=== PATIENT | female | born 1995 | race Caucasian/White ===

== ENCOUNTER 2017-11-25 16:02 | Emergency (ER) | payer OTHER ==
--- NOTE | 2017-11-25 16:06 | PDOC ---
Rapid Medical Evaluation Time Seen by Provider: 11/25/17 16:03 Medical Evaluation: 11/25/17 16:04 I have performed a brief in-person evaluation of this patient. The patient presents with a chief complaint of: LMP 10/03/17, 8wks preg with vaginal spotting since today Pertinent physical exam findings:none I have ordered the following:TV sono, type and screen The patient will proceed to the ED for further evaluation. Discharge Disposition - Diagnosis Threatened - Referrals - Patient Instructions - Post Discharge Activity
[2017-11-25 16:08] VITALS: BP 130/77; PULSE 79; TEMP 99; BMI 23.0
--- NOTE | 2017-11-25 17:04 | PDOC ---
History of Present Illness - General Chief Complaint: Vaginal Bleeding Stated Complaint: 8 WEEKS/BLEEDING Time Seen by Provider: 11/25/17 16:03 History Source: Patient - History of Present Illness Timing/Duration: reports: resolved prior to arrival Past History - Past Medical History Allergies/Adverse Reactions: Allergies Allergy/AdvReac Type Severity Reaction Status Date / Time No Known Allergies Allergy Verified 11/25/17 17:54 Home Medications: Ambulatory Orders NK [No Known Home Medication] 11/25/17 COPD: No DVT: No Dementia: No - Immunization History Immunization Up to Date: Yes - Suicide/Smoking/Psychosocial Hx Smoking History: Never smoked Information on smoking cessation initiated: No Hx Alcohol Use: No Drug/Substance Use Hx: No Substance Use Type: None Review of Systems - Review of Systems Constitutional: No: Chills, Fever ABD/GI: No: Nausea, Vomiting, Abdominal cramping : No: Dysuria, Frequency, Hematuria *Physical Exam - Vital Signs Last Vital Signs Temp Pulse Resp BP Pulse Ox 99.0 F 79 16 130/77 100 11/25/17 16:06 11/25/17 16:06 11/25/17 16:06 11/25/17 16:06 11/25/17 16:06 - Physical Exam General Appearance: Yes: Appropriately Dressed. No: Apparent Distress HEENT: positive: Normal Voice Neck: positive: Supple Respiratory/Chest: negative: Respiratory Distress Female Pelvic Exam: positive: normal external exam, cervical os closed, normal adnexa, vaginal bleeding (trace bleed at site of OS). negative: CMT, adnexal tenderness Gastrointestinal/Abdominal: positive: Soft. negative: Tender Musculoskeletal: negative: CVA Tenderness Integumentary: positive: Dry, Warm Neurologic: positive: Fully Oriented, Alert, Normal Mood/Affect Medical Decision Making - Medical Decision Making 11/25/17 17:02 22-year-old female, , ~7 weeks by dates, here with vaginal bleeding. Patient states she started spotting today, since resolved. No clots, abdominal pain, dysuria, nausea, vomiting or fever. No care as of yet. See exam 1st trimester bleed r/o ectopic vs spon AB vs vag bleed in nl preg Stable w/ trace vag bleed and closed OS on exam w/ benign abd -T&S -beta -UA -US 11/25/17 19:54 Beta > 6000 with + IUP with cardiac activity on ultrasound. Patient Rh+. No signs of infection on UA. Patient denies vaginal bleeding at this time. Stable for discharge with referral to OB this week. Reasons to return discussed with patient *DC/Admit/Observation/Transfer Diagnosis at time of Disposition: Threatened - Discharge Dispostion Disposition: HOME Condition at time of disposition: Good - Referrals Referrals: [facility] [Provider Group] - Patient Instructions Printed Discharge Instructions: Threatened Additional Instructions: Your ultrasound reveals an intrauterine approximately 6 weeks with cardiac activity. Your beta hCG was 6020 Your blood type is A+ Your urine showed no sign of infection Please follow-up with your OB this week. If bleeding worsens and/or he developed severe abdominal pain, return to ER immediately - Post Discharge Activity
[2017-11-25 17:29] LABS: URINE APPEARANCE CLEAR; URINE BILIRUBIN NEGATIVE (<2.0 mg/dL); URINE COLOR STRAW; URINE GLUCOSE (UA) NEGATIVE (NEGATIVE); URINE KETONE NEGATIVE (NEGATIVE); URINE LEUK ESTERASE NEGATIVE (NEGATIVE); URINE NITRITE NEGATIVE (NEGATIVE); URINE PROTEIN NEGATIVE (NEGATIVE); URINE UROBILINOGEN NEGATIVE mg/dL (0.2-1.0)
== END 2017-11-25 19:59 | disposition home or self-care (01) ==
LOC: JER 16:02
DX: O26.891 Other specified pregnancy related conditions, first trimester (principal); Z3A.08 8 weeks gestation of pregnancy; O20.0 Threatened abortion
CPT/HCPCS: 36415; 76817-TC; 81003; 84702; 86850; 86900; 86901; 99283-25

== ENCOUNTER 2019-02-28 18:34 | Emergency (ER) | payer SELFPAY ==
[2019-02-28 18:46] VITALS: BMI 32.0
--- NOTE | 2019-02-28 20:37 | PDOC ---
History of Present Illness - General History Source: Patient Exam Limitations: No Limitations - History of Present Illness Initial Comments: 02/28/19 20:30 Patient is a 23-year-old female G1, P0, LMP 09/24/2018 at 22 weeks here with complaints of a fall which occurred 2 hours ago. States she was ambulating at home in a slipper slipped down 5 steps 2/2 wet floor on her back. States she has some pain to the buttocks on the right. States she bumped her head slightly in the back when she slid down the steps however she has no headache, no loss of consciousness. States her pain is minimal however, she is most concerned about the baby. Denies vaginal bleeding or leakage of fluid. PMD: Dr. Buckley PMHX: neg PSOCHX: neg etoh, drug, cig ALL: NKDA GENERAL/CONSTITUTIONAL: [No fever or chills. No weakness. No weight change.] HEAD, EYES, EARS, NOSE AND THROAT: [No change in vision. No ear pain or discharge. No sore throat.] CARDIOVASCULAR: [No chest pain or shortness of breath.] RESPIRATORY: [No cough, wheezing, or hemoptysis.] GASTROINTESTINAL: [No nausea, vomiting, diarrhea or constipation. No rectal bleeding.] GENITOURINARY: [No dysuria, frequency, or change in urination.] MUSCULOSKELETAL: [No joint or muscle swelling or pain. No neck (+) back pain.] SKIN AND BREASTS: [No rash or easy bruising.] NEUROLOGIC: [No headache, vertigo, loss of consciousness, or loss of sensation.] PSYCHIATRIC: [No depression or anxiety.] ENDOCRINE: [No increased thirst. No abnormal weight change.] HEMATOLOGIC/LYMPHATIC: [No anemia, easy bleeding, or history of blood clots.] ALLERGIC/IMMUNOLOGIC: [No hives or skin allergy. No latex allergy.] GENERAL: [The patient is awake, alert, and fully oriented, in no acute distress. ] HEAD: [Normal with no signs of trauma, nontender scalp.] EYES: [Pupils equal, round and reactive to light, extraocular movements intact, sclera anicteric, conjunctiva clear.] ENT: [Ears normal, nares patent, oropharynx clear without exudates. Moist mucous membranes.] NECK: [Normal range of motion, nontender to palpation midline, Supple without lymphadenopathy, JVD, or masses.] LUNGS: [Breath sounds equal, clear to auscultation bilaterally. No wheezes, and no crackles.] HEART: [Regular rate and rhythm, normal S1 and S2 without murmur, rub.] ABDOMEN: [Soft, gravid, nontender, normoactive bowel sounds. No guarding, no rebound. No masses.] EXTREMITIES: [Normal range of motion, no edema. No clubbing or cyanosis. No cords, erythema, or tenderness.] NEUROLOGICAL: [Cranial nerves II through XII grossly intact. Normal speech, normal gait.] PSYCH: [Normal mood, normal affect.] SKIN: [Warm, Dry, normal turgor, no rashes or lesions noted.] <George Hammonds - Last Filed: 02/28/19 21:04> <Jean Cannon - Last Filed: 03/01/19 04:14> - General Chief Complaint: Injury Stated Complaint: 5 MONTHS /FALL/EVALUATION Time Seen by Provider: 02/28/19 20:10 Past History - Past Medical History COPD: No DVT: No Dementia: No - Immunization History Immunization Up to Date: Yes - Psycho Social/Smoking Cessation Hx Smoking History: Never smoked Hx Alcohol Use: No Drug/Substance Use Hx: No Substance Use Type: None <George Hammonds - Last Filed: 02/28/19 21:04> <Jean Cannon - Last Filed: 03/01/19 04:14> - Past Medical History Allergies/Adverse Reactions: Allergies Allergy/AdvReac Type Severity Reaction Status Date / Time No Known Allergies Allergy Verified 02/28/19 18:46 Home Medications: Ambulatory Orders Vitamins (Sjr) - 1 tab PO DAILY 02/28/19 *Physical Exam - Vital Signs Last Vital Signs Temp Pulse Resp BP Pulse Ox 97.8 F 95 H 18 124/83 100 02/28/19 18:43 02/28/19 18:43 02/28/19 18:43 02/28/19 18:43 02/28/19 18:43 <George Hammonds - Last Filed: 02/28/19 21:04> - Vital Signs Last Vital Signs Temp Pulse Resp BP Pulse Ox 98.1 F 88 20 117/70 100 02/28/19 21:15 12/08/19 21:15 02/28/19 21:15 02/28/19 21:15 02/28/19 18:43 <Jean Cannon - Last Filed: 03/01/19 04:14> Medical Decision Making - Medical Decision Making 02/28/19 20:30 Patient is a 23-year-old female G1, P0, LMP 09/24/2018 at 22 weeks here with complaints of a fall which occurred 2 hours ago. States she was ambulating at home in a slipper slipped down 5 steps 2/2 wet floor on her back. States she has some pain to the buttocks on the right. States she bumped her head slightly in the back when she slid down the steps however she has no headache, no loss of consciousness. States her pain is minimal however, she is most concerned about the baby. Denies vaginal bleeding or leakage of fluid. Patient is status post fall at 22 weeks with possible contusion to the buttocks. She needs to be transferred to the OB area for further evaluation of the wellbeing and placenta. She is medically cleared for transfer. <George Hammonds - Last Filed: 02/28/19 21:04> - Medical Decision Making 03/01/19 04:09 I reviewed the case of the mid-level practitioner and was available for consultation while in the emergency department <Jean Cannon - Last Filed: 03/01/19 04:14> Discharge - Discharge Information Problems reviewed: Yes <George Hammonds - Last Filed: 02/28/19 21:04> <Jean Cannon - Last Filed: 03/01/19 04:14> - Discharge Information Clinical Impression/Diagnosis: Fall Qualifiers: Encounter type: initial encounter Qualified Code(s): W19.XXXA - Unspecified fall, initial encounter Qualifiers: Weeks of gestation: 23 weeks Qualified Code(s): Z3A.23 - 23 weeks gestation of Condition: Stable - Follow up/Referral Referrals: Fiona Smiley MD [Staff Physician] - (patient will follow up with this week patient will maintain all appts as scheduled patient will continue to drink 10-10oz glasses daily patient will return to labor & delivery if water breaks, vaginal bleeding, regular painful contractions or decreased movement patient verbalizes clear understanding of all discharge instructions patient discharged to home stable intact & undelivered)
[2019-03-01 01:09] VITALS: BP 117/70; PULSE 88; TEMP 98.1
== END 2019-02-28 23:20 | disposition home or self-care (01) ==
LOC: JER 18:34
DX: Z04.3 Encounter for examination and observation following other accident (principal); W10.9XXA Fall (on) (from) unspecified stairs and steps, initial encounter; Y93.89 Activity, other specified; Y92.89 Other specified places as the place of occurrence of the external cause; Z3A.23 23 weeks gestation of pregnancy
CPT/HCPCS: 76801-TC; 76817-TC; 99281-25

== ENCOUNTER 2021-08-12 04:02 | Inpatient (IN) | payer OTHER ==
[2021-08-12] MEDS ORDERED: ELECTROLYTE-148 SOLN 1,000 ML IV SCH ×2 (04:45→07:45)
[2021-08-12] MEDS ORDERED: AMPICILLIN SODIUM 2 GM VIAL ONE (05:21)
[2021-08-12 05:24] LABS: BASO % 0.3 % (0-2.0); EOS % 0.9 % (0-4.5); HEMATOCRIT 36.7 % (32.4-45.2); HEMOGLOBIN 12.1 GM/dL (10.7-15.3); LYMPH % 17.2 % (8-40); MCH 28.3 pg (25.7-33.7); MCHC 32.9 g/dl (32.0-36.0); MEAN CELL VOLUME 86.2 fl (80-96); MEAN PLT VOLUME 10.3 fl (7.5-11.1); MONO % 9.7 % (3.8-10.2); NEUT % 71.9 % (42.8-82.8); PLATELET COUNT 122 10^3/uL (134-434); RBC 4.26 M/mm3 (3.60-5.2); RDW 13.8 % (11.6-15.6); WHITE BLOOD COUNT 8.7 K/mm3 (4.0-10.0)
[2021-08-12] MEDS ORDERED: AMPICILLIN - 2 GM in SODIUM CHLORIDE 100 ML IVPB ONE (05:30)
[2021-08-12 05:34] LABS: INR 0.9 (0.83-1.09); PROTHROMBIN TIME (PATIENT) 10.3 SEC (9.7-13.0)
[2021-08-12 05:37] LABS: ACTIVATED PTT 26.7 SECONDS (25.2-36.5)
[2021-08-12 05:41] VITALS: BMI 32.3
[2021-08-12 05:48] LABS: BLOOD UREA NITROGEN 10.1 mg/dL (7-18)
[2021-08-12 05:51] LABS: CREATININE 0.5 mg/dL (0.55-1.3)
[2021-08-12] MEDS ORDERED: OXYTOCIN 20 UNITS in 0.9% NS 20 UNIT/1,000 ML INFUS.BAG IV ONE ×2 (06:08→09:00)
[2021-08-12] MEDS ORDERED: IBUPROFEN 600 MG TABLET (FP) PO PRN (07:41)
[2021-08-12] MEDS ORDERED: METHYLERGONOVINE MALEATE 0.2 MG/1 ML AMP IM PRN (07:41)
[2021-08-12] MEDS ORDERED: ACETAMINOPHEN 325 MG TABLET (FP) PO PRN (07:41)
[2021-08-12] MEDS ORDERED: BENZOCAINE 20% 57 GM BOTTLE TP PRN (07:41)
[2021-08-12] MEDS ORDERED: oxyCODONE HCL 5 MG TABLET PO PRN (07:41)
[2021-08-12] MEDS ORDERED: BENZOCAINE 28 GM HEMORRHOIDAL OINTMENT TP PRN (07:41)
[2021-08-12] MEDS ORDERED: BISACODYL 10 MG SUPP.RECT RC PRN (07:41)
[2021-08-12] MEDS ORDERED: WITCH HAZEL 50% (TUCKS) 40 PAD/JAR PAD TP PRN (07:41)
[2021-08-12] MEDS ORDERED: OXYTOCIN 20 UNITS in 0.9% NS 20 UNIT/1,000 ML INFUS.BAG IV SCH (07:45)
[2021-08-12 07:55] LABS: CORD BASE EXCESS -3.5 mmol/L (0-2); CORD PCO2 36.3 mmHg (30-78); CORD pH 7.38 (7.14-7.44)
[2021-08-12 07:57] LABS: CORD BASE EXCESS -7.2 mmol/L (0-2); CORD HCO3 21.8 mmHg (20-29); CORD PCO2 58.7 mmHg (30-78); CORD pH 7.187 (7.14-7.44)
[2021-08-13 09:18] LABS: BASO % 0.4 % (0-2.0); EOS % 0.6 % (0-4.5); HEMATOCRIT 33.8 % (32.4-45.2); HEMOGLOBIN 11.4 GM/dL (10.7-15.3); LYMPH % 15.4 % (8-40); MCH 29.1 pg (25.7-33.7); MCHC 33.8 g/dl (32.0-36.0); MEAN CELL VOLUME 86.1 fl (80-96); MEAN PLT VOLUME 9.4 fl (7.5-11.1); NEUT % 76.6 % (42.8-82.8); PLATELET COUNT 131 10^3/uL (134-434); RBC 3.92 M/mm3 (3.60-5.2); RDW 14.1 % (11.6-15.6); WHITE BLOOD COUNT 8.8 K/mm3 (4.0-10.0)
[2021-08-13] MEDS: AMPICILLIN - 1 GM in SODIUM CHLORIDE 100 ML IVPB SCH ×2 (19:40→19:41)
[2021-08-13] MEDS ORDERED: SENNOSIDES/DOCUSATE COMBO (SENNA PLUS) TABLET (UD) PO PRN (22:00)
[2021-08-14 12:23] VITALS: BP 118/74; PULSE 89; TEMP 98.4
== END 2021-08-14 13:30 | disposition home or self-care (01) | DRG 541 ==
LOC: JLDR 04:02 → J3W 10:33
PROVIDERS: ADMIT Obstetrics & Gynecology; ATTEND Obstetrics & Gynecology
PROC: 0HQ9XZZ Repair Perineum Skin, External Approach (ICD-10-PCS; principal; 2021-08-12)
PROC: 10E0XZZ Delivery of Products of Conception, External Approach (ICD-10-PCS; 2021-08-12)
PROC: 10D17Z9 Manual Extraction of Products of Conception, Retained, Via Natural or Artificial Opening (ICD-10-PCS; 2021-08-12)
DX: O48.0 Post-term pregnancy (principal); Z3A.40 40 weeks gestation of pregnancy; O70.0 First degree perineal laceration during delivery; Z37.0 Single live birth
CPT/HCPCS: 36415; 36600; 59409; 80048; 82803; 85025; 85610; 85730; 86780; 86850; 86900; 86901; C9803-CS; U0003; U0005

== ENCOUNTER 2024-05-18 12:30 | Inpatient (IN) | payer OTHER ==
[2024-05-18] MEDS: ELECTROLYTE-148 SOLN 1,000 ML IV SCH (13:45)
[2024-05-18 13:55] LABS: BASO % 0.5 % (0-2.0); EOS % 2.1 % (0-4.5); HEMATOCRIT 38.2 % (32.4-45.2); HEMOGLOBIN 12.3 GM/dL (10.7-15.3); LYMPH % 15.6 % (8-40); MCH 28.1 pg (25.7-33.7); MCHC 32.3 g/dl (32.0-36.0); MEAN CELL VOLUME 87.1 fl (80-96); MEAN PLT VOLUME 10.3 fl (7.5-11.1); MONO % 6.8 % (3.8-10.2); PLATELET COUNT 115 10^3/uL (134-434); RBC 4.39 M/mm3 (3.60-5.2); RDW 13.4 % (11.6-15.6); WHITE BLOOD COUNT 7.8 K/mm3 (4.0-10.0)
[2024-05-18 14:04] LABS: INR 0.94 (0.83-1.09); PROTHROMBIN TIME (PATIENT) 10.3 SEC (9.7-13.0)
[2024-05-18 14:07] LABS: ACTIVATED PTT 24.4 SECONDS (25.2-36.5)
[2024-05-18] MEDS ORDERED: FENTANYL/BUPIVACAINE/NS/PF - PCEA - 50 ML DISP.SYRIN EP ONE (14:52)
[2024-05-18 15:04] LABS: CHLORIDE 105 mmol/L (98-107); POTASSIUM 3.7 mmol/L (3.5-5.1); SODIUM 138 mmol/L (136-145)
[2024-05-18 15:05] LABS: ANION GAP 9 mmol/L (4-13); BLOOD UREA NITROGEN 7.1 mg/dL (7-18); CO2 23 mmol/L (21-32); GLUCOSE,RANDOM 68 mg/dL (74-106)
[2024-05-18 15:08] LABS: CREATININE 0.5 mg/dL (0.55-1.3)
[2024-05-18] MEDS: FENTANYL/BUPIVACAINE/NS/PF - PCEA - 50 ML DISP.SYRIN EP SCH (15:10)
[2024-05-18] MEDS ORDERED: AMPICILLIN SODIUM 2 GM VIAL ONE (15:36)
[2024-05-18] MEDS: AMPICILLIN - 2 GM in SODIUM CHLORIDE 100 ML IVPB ONE (15:40)
[2024-05-18 16:05] VITALS: BMI 29.7
[2024-05-18] MEDS: PROMETHAZINE HCL 25 MG/1 ML VIAL IVPB ONE (16:09)
[2024-05-18] MEDS: BUTORPHANOL TARTRATE 2 MG/ML VIAL IVPB ONE (16:09)
[2024-05-18] MEDS: DINOPROSTONE 10 MG VAGINAL SUPPOSITORY VG ONE (16:09)
[2024-05-18 16:22] LABS: SYPHILIS W/ RPR CONF NON-REACTIVE (NONREACTIVE)
[2024-05-18] MEDS ORDERED: NALOXONE HCL 0.4 MG/ML VIAL IVPUSH PRN (16:27)
[2024-05-18 16:51] LABS: HIV INTERPRETATION NEGATIVE (NEGATIVE)
[2024-05-18] MEDS ORDERED: OXYTOCIN 20 UNITS in 0.9% NS 20 UNIT/1,000 ML INFUS.BAG IV ONE (17:07)
[2024-05-18] MEDS: OXYTOCIN 20 UNITS in 0.9% NS 20 UNIT/1,000 ML INFUS.BAG IV SCH (17:48)
[2024-05-18] MEDS ORDERED: BENZOCAINE 20% 57 GM BOTTLE TP PRN (18:35)
[2024-05-18] MEDS ORDERED: METHYLERGONOVINE MALEATE 0.2 MG/1 ML AMP IM PRN (18:35)
[2024-05-18] MEDS ORDERED: oxyCODONE HCL 5 MG TABLET PO PRN (18:35)
[2024-05-18] MEDS ORDERED: BENZOCAINE 28 GM HEMORRHOIDAL OINTMENT TP PRN (18:35)
[2024-05-18] MEDS ORDERED: BISACODYL 10 MG SUPP.RECT RC PRN (18:35)
[2024-05-18] MEDS ORDERED: ACETAMINOPHEN 325 MG TABLET (FP) PO PRN (18:35)
[2024-05-18] MEDS ORDERED: WITCH HAZEL 50% (TUCKS) 40 PAD/JAR PAD TP PRN (18:35)
[2024-05-18 18:55] LABS: CORD HCO3 21.3 mmHg (20-29); CORD PCO2 39.8 mmHg (30-78); CORD pH 7.346 (7.14-7.44)
[2024-05-18 18:56] LABS: CORD HCO3 22.6 mmHg (20-29); CORD PCO2 57.8 mmHg (30-78); CORD pH 7.211 (7.14-7.44)
[2024-05-18] MEDS: AMPICILLIN - 1 GM in SODIUM CHLORIDE 100 ML IVPB SCH (21:44)
[2024-05-18] MEDS: PRENATAL VITAMINS W/ FOLIC ACID TABLET (FP) PO SCH (21:44)
[2024-05-19 00:51] VITALS: RESP 18
[2024-05-19] MEDS: IBUPROFEN 600 MG TABLET (FP) PO PRN (02:29)
[2024-05-19 08:37] LABS: BASO % 0.4 % (0-2.0); EOS % 1.5 % (0-4.5); HEMATOCRIT 33.7 % (32.4-45.2); HEMOGLOBIN 11.4 GM/dL (10.7-15.3); LYMPH % 15.8 % (8-40); MCH 29.2 pg (25.7-33.7); MCHC 33.9 g/dl (32.0-36.0); MEAN CELL VOLUME 86.2 fl (80-96); MEAN PLT VOLUME 10.8 fl (7.5-11.1); MONO % 7.7 % (3.8-10.2); NEUT % 74.6 % (42.8-82.8); PLATELET COUNT 114 10^3/uL (134-434); RBC 3.91 M/mm3 (3.60-5.2); RDW 13.4 % (11.6-15.6); WHITE BLOOD COUNT 9.7 K/mm3 (4.0-10.0)
[2024-05-19] MEDS: FERROUS SO4 325 MG TABLET (FP) PO SCH (09:22)
[2024-05-19] MEDS ORDERED: SENNOSIDES/DOCUSATE COMBO (SENNA PLUS) TABLET (UD) PO PRN (22:00)
[2024-05-20 08:32] VITALS: BP 100/59; PULSE 71; TEMP 98
== END 2024-05-20 13:35 | disposition home or self-care (01) | DRG 560 ==
LOC: JDEL 12:30 → JLDR 13:05 → J3W 20:46
PROVIDERS: ADMIT Obstetrics & Gynecology; ATTEND Obstetrics & Gynecology
PROC: 10E0XZZ Delivery of Products of Conception, External Approach (ICD-10-PCS; principal; 2024-05-18)
DX: O48.0 Post-term pregnancy (principal); Z3A.40 40 weeks gestation of pregnancy; Z37.0 Single live birth; O90.81 Anemia of the puerperium; D64.9 Anemia, unspecified
CPT/HCPCS: 36415; 36600; 59409; 80048; 82803; 85025; 85610; 85730; 86780; 86803; 86850; 86900; 86901; 87340; 87389